=== PATIENT | male | born 1950 | race Caucasian/White ===

== ENCOUNTER 2017-10-23 07:40 | Outpatient (CLI) | payer MEDICARE, MEDICAID | END 2017-10-23 07:41 | disposition home or self-care (01) | LOC: BICULT 07:40 | PROVIDERS: ATTEND Internal Medicine Nephrology | DX: Z01.818 Encounter for other preprocedural examination (principal); I12.0 Hypertensive chronic kidney disease with stage 5 chronic kidney disease or end stage renal disease; N18.6 End stage renal disease | CPT/HCPCS: 93970; G0365 ==

== ENCOUNTER 2017-12-05 06:09 | Day surgery (SDC) | payer MEDICARE, MEDICAID ==
--- NOTE | 2017-12-03 15:38 | HP ---
HISTORY OF PRESENT ILLNESS: Trenton Delgado is a 67-year-old male with chronic kidney disease follow ed by Dr. Wesley and I was asked to see him regarding placement of a fistula. He has not yet starte d dialysis. The patient lives alone in [place]. ALLERGIES: None. TOBACCO: Cigars 2-3 a day. ALCOHOL: None for more than 12 years. MEDICATIONS: Carvedilol 12.5 mg a day, atorvastatin 40 mg at bedtime, Tradjenta 5 mg orally daily, P roventil inhalers as needed, lisinopril 10 mg a day, metformin 1000 mg twice a day. PAST SURGICAL HISTORY: ORIF, cervical spine ankle and hip. PAST MEDICAL HISTORY: Chronic kidney disease, not yet started dialysis; hypertension. SOCIAL HISTORY: Past employment oil field work, he is retired. The patient ambulates with a walker due to some hip problems and balance. He is right handed. Ultrasound vein mapping performed at [facility] on 10/23/2017 reveal cephalic vein right 3.1, 2.1 , 2.3, 2.8, 1.3 cm; proximal forearm basilic vein 4.4, 5.3, 4.7, 3.4 mm; elbow left cephalic vein 1.2 , 1.2, 1.2, 1.8, 1.9 mm proximal forearm; left basilic vein 5.2, 3.2, 2.5 cm, 2.7 mm; 2.0 mm forearm. PHYSICAL EXAMINATION: VITAL SIGNS: Weight 221 pounds, height 73 inches, 179/73, pulse 65, temperature 97.9 degrees. GENERAL: The patient is unkempt. LUNGS: Clear to auscultation. CARDIAC: Regular rate and rhythm without murmur, rub, or gallop. ABDOMEN: Soft, nontender. EXTREMITIES: Palpable radial pulses. No ankle edema. Multiple scratches both arms from his [place] amador puppy. LABORATORY DATA: Laboratories not available. ASSESSMENT AND PLAN: Chronic kidney disease, approaching need for dialysis, referred by Dr. Wesley for fistula. We will plan under regional anesthesia and TIVA right arm primary fistula. Risks and b enefits discussed, he consents.
[2017-12-04 09:18] VITALS: BMI 27.1
[2017-12-05] MEDS ORDERED: Heparin 5,000 UNITS/ML VIAL ONE (06:31)
[2017-12-05] MEDS ORDERED: Lidocaine 2% PF Inj 2 ML VIAL ONE (06:31)
[2017-12-05] MEDS ORDERED: Bupivacaine HCl 0.5%/Epinephrine 1:200,000/PF 30 ml Vial ONE ×2 (06:31→15:03)
[2017-12-05] MEDS ORDERED: Protamine Sulfate 50 MG/5 ML VIAL ONE (06:48)
[2017-12-05] MEDS ORDERED: Fentanyl 100 MCG/2 ML VIAL ONE ×2 (06:56)
[2017-12-05] MEDS ORDERED: Midazolam HCl 2 mg/2 ml Vial ONE ×2 (06:56→06:57)
[2017-12-05] MEDS ORDERED: PROPOFOL 0 ML ONE (06:57)
[2017-12-05] MEDS ORDERED: CEFAZOLIN/Water 2 GM/20 ML SYRINGE ONE (06:57)
[2017-12-05 07:01] LABS: Anion Gap 13 mmol/L (10-20); BUN (Urea Nitrogen) 41 mg/dL (8.4-25.7); Calc. Creatinine Clearance 20 mL/min (70-130); Calcium 8.5 mg/dL (7.8-10.44); Carbon Dioxide 23 mmol/L (23-31); Chloride 108 mmol/L (98-107); Estimated GFR-MDRD 11; Glucose 85 mg/dL (80-115); Potassium 4.8 mmol/L (3.5-5.1); Sodium 139 mmol/L (136-145)
[2017-12-05 07:16] LABS: #Basophils 0.1 thou/uL (0.0-0.2); #Eosinphils 0.2 thou/uL (0.0-0.7); #Lymphocytes 1.7 thou/uL (1.20-3.40); #Monocytes 0.4 thou/uL (0.11-0.59); %Basophils 0.9 % (0.0-1.0); %Eosinophils 3.7 % (0.0-10.0); %Lymphocytes 25.8 % (21.0-51.0); %Monocytes 6.7 % (0.0-10.0); %Neutrophils 62.9 % (42.0-75.0); Hemoglobin 9.6 g/dL (14.0-18.0); Mean Corpuscular HGB CONC 33.2 g/dL (32.0-36.0); Mean Corpuscular Hemoglobin 30.3 pg (27.0-31.0); Mean Corpuscular Volume 91.3 fL (78.0-98.0); Mean Platelet Volume 9.1 fL (7.4-10.4); Platelet Count 119 thou/uL (130-400); RBC Distribution Width 12.4 % (11.5-14.5); Red Blood Cell (RBC) Count 3.15 mill/uL (4.70-6.10); White Blood Cell (WBC) Count 6.4 thou/uL (4.8-10.8)
[2017-12-05] MEDS ORDERED: Fentanyl 250 MCG/5 ML VIAL ONE (08:53)
[2017-12-05] MEDS ORDERED: Morphine 4 MG/ML VIAL ONE (08:54)
--- NOTE | 2017-12-05 09:41 | OP ---
DATE OF PROCEDURE: 12/05/2017 PREOPERATIVE DIAGNOSIS: Chronic kidney disease, not yet having started dialysis. POSTOPERATIVE DIAGNOSES: 1. Chronic kidney disease, not yet having started dialysis. 2. Right wrist Annalise fistula, cephalic vein calibrated to a 4 mm, easily passed without obstruction , excellent caliber radial artery. SURGEON: Barrett Ghosh M.D. ANESTHESIA: TIVA. Regional right arm. PROCEDURE: The patient was taken to the operating room where under regional anesthesia and intraveno us sedation, right upper extremity was prepared with ChloraPrep, draped in routine fashion. Incision made longitudinal between the radial artery and cephalic vein, dissecting both free from surrounding soft tissue, dividing branches of the cephalic vein between 4-0 silk ties and clips, mobilizing the cephalic vein, clamping the cephalic vein on the hand side, dividing it and ligating it with 3-0 silk suture. It was spatulated and interrogated with coronary dilators, passing coronary dilators from a 2 mm to a 4 mm coronary dilator throughout its length without obstruction. There was a large branch point. Utilizing the anastomosis spatulated on to that branch point and radial artery clamped proxi estela and distally after adequate heparin, intravenous circulation time 6000 units administered. Leonel gitudinal radial arteriotomy made sharply and elongated with Lind scissors for a 3 cm anastomosis en d cephalic vein to side radial artery with continuous suture of 6-0 Prolene, completing the anastomos is, releasing the clamps, noting good Doppler signal throughout the cephalic vein outflow. Good hemo stasis noted. subcutaneous tissues 3-0 Monocryl, approximating the skin with subdermal 4-0 Monocryl and DermaGlue applied. The patient was given 25 mg of protamine intravenously.
[2017-12-05] MEDS ORDERED: PROPOFOL 200 MG/20 ML VIAL ONE (15:44)
[2017-12-05] MEDS ORDERED: Heparin 10,000 UNITS/ 10 ML VIAL ONE (15:44)
[2017-12-05] MEDS ORDERED: Lidocaine 1% PF 5 ML VIAL ONE (15:44)
--- NOTE | 2017-12-05 16:42 | EKG ---
Test Reason : PREOP Blood Pressure : / mmHG Vent. Rate : 069 BPM Atrial Rate : 069 BPM P-R Int : 206 ms QRS Dur : 102 ms QT Int : 420 ms P-R-T Axes : 055 -10 033 degrees QTc Int : 450 ms Normal sinus rhythm Cannot rule out Anterior infarct , age undetermined Abnormal ECG When compared with ECG of 28-FEB-2011 18:10, No significant change was found Confirmed by ALEJANDRO LYN, . SBaljinder ([id number]) on 12/05/2017 4:42:35 PM Referred By: RICH Confirmed By:DR. Tali ALLEN MD
== END 2017-12-05 10:10 | disposition home or self-care (01) ==
LOC: SDC 06:09
PROVIDERS: ATTEND Specialist
PROC: 031B0ZF Bypass Right Radial Artery to Lower Arm Vein, Open Approach (ICD-10-PCS; principal; 2017-12-05)
DX: I12.0 Hypertensive chronic kidney disease with stage 5 chronic kidney disease or end stage renal disease (principal); N18.6 End stage renal disease; Z79.899 Other long term (current) drug therapy
CPT/HCPCS: 36415; 80048; 85025; 93005; 93010; J0670; J1644; J2001; J2250; J2270; J2704; J2720; J3010

== ENCOUNTER 2018-01-07 12:48 | Day surgery (SDC) | payer MEDICARE, MEDICAID ==
[2018-01-07 13:20] VITALS: BP 182/79; TEMP 97.5
[2018-01-07 13:49] LABS: #Eosinphils 0.2 thou/uL (0.0-0.7); #Lymphocytes 1.4 thou/uL (1.20-3.40); #Monocytes 0.3 thou/uL (0.11-0.59); #Neutrophils 3.1 thou/uL (1.40-6.50); %Basophils 0.2 % (0.0-1.0); %Eosinophils 3.8 % (0.0-10.0); %Lymphocytes 27.3 % (21.0-51.0); %Monocytes 6.4 % (0.0-10.0); %Neutrophils 62.3 % (42.0-75.0); Hemoglobin 8.4 g/dL (14.0-18.0); Mean Corpuscular HGB CONC 32.9 g/dL (32.0-36.0); Mean Corpuscular Hemoglobin 29.8 pg (27.0-31.0); Mean Corpuscular Volume 90.6 fL (78.0-98.0); Mean Platelet Volume 8.3 fL (7.4-10.4); Platelet Count 110 thou/uL (130-400); RBC Distribution Width 12.5 % (11.5-14.5)
[2018-01-07] MEDS ORDERED: Epoetin 40,000 UNITS/ML VIAL SC SCH (14:00)
== END 2018-01-07 14:11 | disposition home or self-care (01) ==
LOC: ONC/OP 12:48
PROVIDERS: ATTEND Internal Medicine Hematology & Oncology
DX: N18.9 Chronic kidney disease, unspecified (principal); D63.1 Anemia in chronic kidney disease; Z79.899 Other long term (current) drug therapy
CPT/HCPCS: 85025; 96372; J0885

== ENCOUNTER 2022-03-17 12:50 | Inpatient (IN) | payer MEDICARE, MEDICAID ==
[2022-03-17 13:33] LABS: #Eosinphils 0.1 thou/uL (0.0-0.7); #Monocytes 0.2 thou/uL (0.11-0.59); #Neutrophils 5.5 thou/uL (1.40-6.50); %Basophils 0.4 % (0.0-1.0); %Lymphocytes 14.3 % (21.0-51.0); %Monocytes 3.5 % (0.0-10.0); Mean Corpuscular HGB CONC 33.8 g/dL (32.0-36.0); Mean Corpuscular Hemoglobin 33.1 pg (27.0-31.0); Mean Corpuscular Volume 98.1 fl (78.0-98.0); Mean Platelet Volume 8.3 fL (7.4-10.4); Platelet Count 153 10x3/uL (130-400); RBC Distribution Width 11.6 % (11.5-14.5); Red Blood Cell (RBC) Count 3.33 mill/uL (4.70-6.10); White Blood Cell (WBC) Count 6.8 10x3/uL (4.8-10.8)
[2022-03-17 14:05] LABS: Acetaminophen Less than 10.0 mcg/mL (10.0-30.0); Alcohol Less than 10 mg/dL (Less than 10); Salicylate Less than 8.0 mg/dL (15.0-30.0)
[2022-03-17 14:06] LABS: ALT (SGPT) 10 U/L (8-55); AST (SGOT) 10 U/L (5-34); Albumin 3.9 g/dL (3.4-4.8); Alkaline Phosphatase 85 U/L (40-110); Anion Gap 17 mmol/L (10-20); BUN (Urea Nitrogen) 42 mg/dL (8.4-25.7); Bilirubin, Total 0.8 mg/dL (0.2-1.2); CK (CPK) 71 U/L (30-200); Calc. Creatinine Clearance 0 mL/min (70-130); Calcium 8.9 mg/dL (7.8-10.44); Carbon Dioxide 24 mmol/L (23-31); Chloride 102 mmol/L (98-107); Estimated GFR 9; Globulin 3.4 g/dL (2.4-3.5); Glucose 149 mg/dL (80-115); Potassium 4.6 mmol/L (3.5-5.1); Protein, Total 7.3 g/dL (5.8-8.1); Sodium 138 mmol/L (136-145)
[2022-03-17 14:49] LABS: Amphetamine Not Detected (NotDetected); Barbiturates Screen Not Detected (NotDetected); Benzodiazepine Screen Not Detected (NotDetected); Cocaine Metabolite Screen Not Detected (NotDetected); Methadone Not Detected (NotDetected); Methamphetamine Not Detected (NotDetected); Opiate Screen Not Detected (NotDetected); Oxycodone Screen Not Detected (NotDetected); Phencyclidine (PCP) Not Detected (NotDetected); THC/Cannabinoid Screen Not Detected (NotDetected); Tricyclic Screen Not Detected (NotDetected)
[2022-03-17 15:08] LABS: Bacteria/HPF 3+ HPF (None Seen); Bilirubin Negative (Negative); Blood, Urine 2+ (Negative); Clarity Turbid (Clear); Glucose, Urine (Dipstick) 30 mg/dL (Negative); Ketone, Urine Negative (Negative); Leukocyte 500 Leu/uL (Negative); Nitrite Negative (Negative); Protein, Urine (Dipstick) 300 mg/dL (Neg-Trace); Specific Gravity, Urine 1.012 (1.002-1.036); Squamous Epithelial 0-3 HPF (0-3); Urobilinogen Normal mg/dL (Less than 2); WBC/HPF 21-50 HPF (0-3)
[2022-03-17 15:13] LABS: Sperm/HPF Rare HPF (None Seen)
[2022-03-17] MEDS ORDERED: Ciprofloxacin 500 MG TAB ONE (16:57)
[2022-03-18 08:38] LABS: Anion Gap 13 mmol/L (10-20); BUN (Urea Nitrogen) 50 mg/dL (8.4-25.7); Calc. Creatinine Clearance 0 mL/min (70-130); Calcium 8.8 mg/dL (7.8-10.44); Carbon Dioxide 23 mmol/L (23-31); Chloride 107 mmol/L (98-107); Estimated GFR 8; Glucose 132 mg/dL (80-115); Potassium 5.4 mmol/L (3.5-5.1); Sodium 138 mmol/L (136-145)
[2022-03-18] MEDS ORDERED: Sulfameth/Trimethoprim DS 800-160mg TAB ONE ×2 (08:44→21:41)
[2022-03-18 17:25] LABS: Anion Gap 11 mmol/L (10-20); BUN (Urea Nitrogen) 29 mg/dL (8.4-25.7); Calc. Creatinine Clearance 0 mL/min (70-130); Carbon Dioxide 27 mmol/L (23-31); Chloride 104 mmol/L (98-107); Estimated GFR 14; Glucose 154 mg/dL (80-115); Potassium 4.2 mmol/L (3.5-5.1); Sodium 138 mmol/L (136-145)
[2022-03-19 08:09] LABS: Anion Gap 15 mmol/L (10-20); BUN (Urea Nitrogen) 34 mg/dL (8.4-25.7); Calc. Creatinine Clearance 0 mL/min (70-130); Carbon Dioxide 19 mmol/L (23-31); Chloride 108 mmol/L (98-107); Estimated GFR 10; Glucose 87 mg/dL (80-115); Potassium 5.3 mmol/L (3.5-5.1); Sodium 137 mmol/L (136-145)
[2022-03-19] MEDS ORDERED: Sulfameth/Trimethoprim DS 800-160mg TAB ONE (09:18)
[2022-03-20 00:14] LABS: Anion Gap 13 mmol/L (10-20); BUN (Urea Nitrogen) 48 mg/dL (8.4-25.7); Calc. Creatinine Clearance 0 mL/min (70-130); Calcium 8.7 mg/dL (7.8-10.44); Carbon Dioxide 26 mmol/L (23-31); Chloride 104 mmol/L (98-107); Estimated GFR 9; Glucose 127 mg/dL (80-115); Sodium 138 mmol/L (136-145)
[2022-03-20] MEDS ORDERED: Acetaminophen 325 MG TAB ONE (03:39)
[2022-03-20] MEDS ORDERED: Ibuprofen 200 MG TAB ONE ×2 (03:39→03:43)
[2022-03-20] MEDS ORDERED: Sevelamer Carbonate 800 MG TAB PO PRN (11:21)
[2022-03-20] MEDS ORDERED: metFORMIN 500 MG TAB PO SCH (11:30)
[2022-03-20] MEDS ORDERED: Tamsulosin HCl 0.4 MG CAP PO SCH (11:30)
[2022-03-20] MEDS ORDERED: Carvedilol 6.25 MG TAB PO SCH (11:30)
[2022-03-20] MEDS ORDERED: Pregabalin 25 MG CAP PO SCH (11:30)
[2022-03-20] MEDS ORDERED: NIFEdipine XL 60 MG TAB PO SCH (11:30)
[2022-03-20] MEDS ORDERED: HumaLOG 300 UNITS/3 ML VIAL SC PRN ×2 (14:14→14:44)
[2022-03-20] MEDS ORDERED: Dextrose 50% Abboject 50 ML SYRINGE SLOW IVP PRN (14:14)
[2022-03-20] MEDS ORDERED: Dextrose 5% in Water 1,000 ML IV PRN (14:14)
[2022-03-20] MEDS ORDERED: Sulfameth/Trimethoprim DS 800-160mg TAB ONE (14:42)
[2022-03-20 15:01] LABS: Hemoglobin A1c 5.2 % (4.0-6.0)
[2022-03-20 17:40] VITALS: BMI 23.1
[2022-03-20] MEDS: Sevelamer Carbonate 800 MG TAB PO SCH (17:54)
[2022-03-20] MEDS: Nicotine 21 MG PATCH TD SCH (17:54)
[2022-03-20] MEDS: Heparin 5,000 UNITS/ML VIAL SC SCH ×2 (17:54→20:27)
[2022-03-20] MEDS: Pregabalin 25 MG CAP PO SCH (20:27)
[2022-03-20] MEDS: Atorvastatin Calcium 40 MG TAB PO SCH (20:27)
[2022-03-20] MEDS ORDERED: Sulfameth/Trimethoprim DS 800-160mg TAB PO SCH (21:00)
[2022-03-21 05:54] LABS: #Eosinphils 0.2 thou/uL (0.0-0.7); #Lymphocytes 1.6 thou/uL (1.20-3.40); #Monocytes 0.4 thou/uL (0.11-0.59); #Neutrophils 4.2 thou/uL (1.40-6.50); %Basophils 0.3 % (0.0-1.0); %Eosinophils 3.7 % (0.0-10.0); %Lymphocytes 24.9 % (21.0-51.0); %Monocytes 5.4 % (0.0-10.0); %Neutrophils 65.7 % (42.0-75.0); Hemoglobin 9.4 g/dL (14.0-18.0); Mean Corpuscular HGB CONC 31.7 g/dL (32.0-36.0); Mean Corpuscular Hemoglobin 31.5 pg (27.0-31.0); Mean Corpuscular Volume 99.5 fl (78.0-98.0); Mean Platelet Volume 8.9 fL (7.4-10.4); Platelet Count 144 10x3/uL (130-400); RBC Distribution Width 11.8 % (11.5-14.5); Red Blood Cell (RBC) Count 2.99 mill/uL (4.70-6.10); White Blood Cell (WBC) Count 6.4 10x3/uL (4.8-10.8)
[2022-03-21 06:13] LABS: Anion Gap 17 mmol/L (10-20); BUN (Urea Nitrogen) 59 mg/dL (8.4-25.7); Calc. Creatinine Clearance 11 mL/min (70-130); Calcium 8.7 mg/dL (7.8-10.44); Carbon Dioxide 20 mmol/L (23-31); Chloride 105 mmol/L (98-107); Estimated GFR 8; Glucose 91 mg/dL (80-115); Potassium 5.5 mmol/L (3.5-5.1); Sodium 136 mmol/L (136-145)
[2022-03-21] MEDS ORDERED: metFORMIN 500 MG TAB PO SCH (08:00)
[2022-03-21] MEDS: Sevelamer Carbonate 800 MG TAB PO SCH ×3 (08:42→17:02)
[2022-03-21] MEDS: Heparin 5,000 UNITS/ML VIAL SC SCH (08:43)
[2022-03-21] MEDS: Pregabalin 25 MG CAP PO SCH (08:43)
[2022-03-21] MEDS: Tamsulosin HCl 0.4 MG CAP PO SCH (08:45)
[2022-03-21] MEDS ORDERED: Carvedilol 6.25 MG TAB PO SCH (09:00)
[2022-03-21] MEDS ORDERED: NIFEdipine XL 60 MG TAB PO SCH (09:00)
[2022-03-21] MEDS ORDERED: Electrolyte Replacement Protocol 1 EACH IVPB ONE (11:10)
[2022-03-21] MEDS ORDERED: DOPamine 400 MG/D5W 250 ML 250 ML IVPB SCH (11:15)
[2022-03-21 11:34] LABS: Hemoglobin 8.4 g/dL (14.0-18.0); Mean Corpuscular HGB CONC 32.8 g/dL (32.0-36.0); Mean Corpuscular Hemoglobin 32.3 pg (27.0-31.0); Mean Corpuscular Volume 98.4 fl (78.0-98.0); Red Blood Cell (RBC) Count 2.61 mill/uL (4.70-6.10); White Blood Cell (WBC) Count 5.3 10x3/uL (4.8-10.8)
[2022-03-21] MEDS ORDERED: Atropine Sulfate 1 mg/10 ml Syringe ONE (11:36)
[2022-03-21] MEDS ORDERED: Calcium Chloride 1 GM/10 ML Abboject SYRINGE ONE (11:36)
[2022-03-21] MEDS ORDERED: DOPamine/D5W 400 mg/250 ml PREMIX ONE (11:36)
[2022-03-21 11:44] LABS: ALT (SGPT) 34 U/L (8-55); AST (SGOT) 27 U/L (5-34); Alkaline Phosphatase 57 U/L (40-110); Anion Gap 13 mmol/L (10-20); BUN (Urea Nitrogen) 49 mg/dL (8.4-25.7); Bilirubin, Total 0.5 mg/dL (0.2-1.2); Calc. Creatinine Clearance 14 mL/min (70-130); Calcium 8.9 mg/dL (7.8-10.44); Carbon Dioxide 23 mmol/L (23-31); Chloride 104 mmol/L (98-107); Estimated GFR 10; Globulin 2.4 g/dL (2.4-3.5); Glucose 112 mg/dL (80-115); Magnesium 2.5 mg/dL (1.6-2.6); Phosphorus 5.9 mg/dL (2.3-4.7); Potassium 4.9 mmol/L (3.5-5.1); Protein, Total 5.4 g/dL (5.8-8.1); Sodium 135 mmol/L (136-145)
[2022-03-21 11:46] LABS: #Eosinphils 0.2 thou/uL (0.0-0.7); #Lymphocytes 1.3 thou/uL (1.20-3.40); #Monocytes 0.2 thou/uL (0.11-0.59); #Neutrophils 3.6 thou/uL (1.40-6.50); %Basophils 0.2 % (0.0-1.0); %Eosinophils 3.5 % (0.0-10.0); %Lymphocytes 24.2 % (21.0-51.0); %Monocytes 3.8 % (0.0-10.0); %Neutrophils 68.3 % (42.0-75.0); Mean Platelet Volume 8.4 fL (7.4-10.4); Platelet Count 119 10x3/uL (130-400); Platelet Morphology Comment Appears Decreased; RBC Distribution Width 11.8 % (11.5-14.5)
[2022-03-21 11:48] LABS: Troponin I 0.018 ng/mL (< 0.028)
[2022-03-21 11:51] LABS: HBSAg Index 0.47 S/CO (0-0.99); Hep B Core Total Ab Non-Reactive (NonReactive); Hep B Core Total Index 0.25 S/CO (0-0.79); Hep B Surf Ag Non-Reactive S/CO (NonReactive); Hep C IgG Ab Non-Reactive (NonReactive)
[2022-03-21 12:00] LABS: HBSAB Concentration 208.39 mIU/mL; Hep B Surf AB Reactive (NonReactive)
[2022-03-21] MEDS ORDERED: Ondansetron PF 4 MG/2 ML Vial IVP SCH ×2 (12:15→18:00)
[2022-03-21] MEDS ORDERED: Vancomycin 1 GM in Premix Bag 1 BAG IVPB SCH (12:45)
[2022-03-21 16:29] LABS: Anion Gap 11 mmol/L (10-20); BUN (Urea Nitrogen) 17 mg/dL (8.4-25.7); Calc. Creatinine Clearance 32 mL/min (70-130); Calcium 8.6 mg/dL (7.8-10.44); Carbon Dioxide 29 mmol/L (23-31); Chloride 102 mmol/L (98-107); Estimated GFR 26; Glucose 108 mg/dL (80-115); Potassium 3.9 mmol/L (3.5-5.1); Sodium 138 mmol/L (136-145)
[2022-03-21] MEDS: Nicotine 21 MG PATCH TD SCH (17:02)
[2022-03-21] MEDS: Acetaminophen 325 MG TAB PO PRN (17:02)
[2022-03-21] MEDS ORDERED: Ondansetron PF 4 MG/2 ML Vial IVP PRN (18:06)
[2022-03-21] MEDS: Atorvastatin Calcium 40 MG TAB PO SCH (20:04)
[2022-03-22] MEDS: Acetaminophen 325 MG TAB PO PRN ×3 (00:58→20:22)
[2022-03-22] MEDS ORDERED: Heparin 10,000 UNITS/ 10 ML VIAL ONE (07:38)
[2022-03-22 08:08] LABS: #Eosinphils 0.1 thou/uL (0.0-0.7); #Lymphocytes 0.5 thou/uL (1.20-3.40); #Monocytes 0.3 thou/uL (0.11-0.59); #Neutrophils 3.1 thou/uL (1.40-6.50); %Basophils 0.1 % (0.0-1.0); %Eosinophils 2.9 % (0.0-10.0); %Lymphocytes 12.6 % (21.0-51.0); %Monocytes 7.4 % (0.0-10.0); Hemoglobin 10.1 g/dL (14.0-18.0); Mean Corpuscular HGB CONC 33.3 g/dL (32.0-36.0); Mean Corpuscular Hemoglobin 32.6 pg (27.0-31.0); Mean Platelet Volume 8.6 fL (7.4-10.4); Platelet Count 109 10x3/uL (130-400); RBC Distribution Width 11.7 % (11.5-14.5); Red Blood Cell (RBC) Count 3.11 mill/uL (4.70-6.10)
[2022-03-22] MEDS ORDERED: NIFEdipine XL 30 MG TAB PO SCH ×3 (08:17→11:00)
[2022-03-22 08:18] LABS: ALT (SGPT) 26 U/L (8-55); AST (SGOT) 26 U/L (5-34); Albumin 3.3 g/dL (3.4-4.8); Alkaline Phosphatase 65 U/L (40-110); Anion Gap 13 mmol/L (10-20); BUN (Urea Nitrogen) 30 mg/dL (8.4-25.7); Bilirubin, Total 0.7 mg/dL (0.2-1.2); Calc. Creatinine Clearance 19 mL/min (70-130); Calcium 8.4 mg/dL (7.8-10.44); Carbon Dioxide 25 mmol/L (23-31); Chloride 103 mmol/L (98-107); Estimated GFR 13; Globulin 3.8 g/dL (2.4-3.5); Glucose 97 mg/dL (80-115); Potassium 5.9 mmol/L (3.5-5.1); Protein, Total 7.1 g/dL (5.8-8.1); Sodium 135 mmol/L (136-145)
[2022-03-22] MEDS: Sevelamer Carbonate 800 MG TAB PO SCH ×3 (08:26→16:12)
[2022-03-22] MEDS: Famotidine/PF 20 mg/2ml Vial SLOW IVP SCH (08:26)
[2022-03-22] MEDS: Aspirin 81 mg Enteric Coated Tablet PO SCH (08:26)
[2022-03-22] MEDS: Tamsulosin HCl 0.4 MG CAP PO SCH (08:26)
[2022-03-22] MEDS: Nicotine 21 MG PATCH TD SCH (16:11)
[2022-03-22] MEDS ORDERED: Tamsulosin HCl 0.4 MG CAP PO SCH ×2 (18:00→21:00)
[2022-03-22] MEDS: Atorvastatin Calcium 40 MG TAB PO SCH (20:23)
[2022-03-22] MEDS ORDERED: Simvastatin 40 MG TAB PO SCH (21:00)
[2022-03-23 03:49] LABS: #Lymphocytes 0.9 thou/uL (1.20-3.40); #Monocytes 0.4 thou/uL (0.11-0.59); #Neutrophils 2.5 thou/uL (1.40-6.50); %Basophils 0.5 % (0.0-1.0); %Eosinophils 0.7 % (0.0-10.0); %Lymphocytes 22.7 % (21.0-51.0); %Monocytes 10.5 % (0.0-10.0); %Neutrophils 65.6 % (42.0-75.0); Mean Corpuscular HGB CONC 33.2 g/dL (32.0-36.0); Mean Corpuscular Hemoglobin 32.2 pg (27.0-31.0); Mean Corpuscular Volume 96.7 fl (78.0-98.0); Mean Platelet Volume 8.5 fL (7.4-10.4); Platelet Count 91 10x3/uL (130-400); RBC Distribution Width 11.7 % (11.5-14.5); Red Blood Cell (RBC) Count 3.09 mill/uL (4.70-6.10); White Blood Cell (WBC) Count 3.8 10x3/uL (4.8-10.8)
[2022-03-23 04:05] LABS: ALT (SGPT) 24 U/L (8-55); AST (SGOT) 16 U/L (5-34); Albumin 3.4 g/dL (3.4-4.8); Alkaline Phosphatase 59 U/L (40-110); Anion Gap 12 mmol/L (10-20); BUN (Urea Nitrogen) 28 mg/dL (8.4-25.7); Bilirubin, Total 0.7 mg/dL (0.2-1.2); Calc. Creatinine Clearance 18 mL/min (70-130); Calcium 8.6 mg/dL (7.8-10.44); Carbon Dioxide 26 mmol/L (23-31); Chloride 103 mmol/L (98-107); Estimated GFR 12; Globulin 3.4 g/dL (2.4-3.5); Glucose 82 mg/dL (80-115); Potassium 4.7 mmol/L (3.5-5.1); Protein, Total 6.8 g/dL (5.8-8.1); Sodium 136 mmol/L (136-145)
[2022-03-23] MEDS: Acetaminophen 325 MG TAB PO PRN (04:44)
[2022-03-23] MEDS: Sevelamer Carbonate 800 MG TAB PO SCH (08:39)
[2022-03-23] MEDS: Famotidine/PF 20 mg/2ml Vial SLOW IVP SCH (08:40)
[2022-03-23] MEDS: Aspirin 81 mg Enteric Coated Tablet PO SCH (08:40)
[2022-03-23 08:42] VITALS: BP 151/100
[2022-03-23] MEDS ORDERED: Tamsulosin HCl 0.4 MG CAP PO SCH (09:00)
[2022-03-23] MEDS ORDERED: NIFEdipine XL 60 MG TAB PO SCH (09:00)
[2022-03-23 10:27] VITALS: TEMP 98.3
[2022-03-24] MEDS ORDERED: Pantoprazole 40 MG VIAL IVP SCH (09:00)
== END 2022-03-23 11:00 | DRG 640 ==
LOC: ERS 12:50 → ERHOLD 03-20 11:00 → T4-B 03-20 17:54 → CCU 03-21 11:30
PROVIDERS: ADMIT Emergency Medicine; ATTEND Emergency Medicine
PROC: 5A1D70Z Performance of Urinary Filtration, Intermittent, Less than 6 Hours Per Day (ICD-10-PCS; principal; 2022-03-20)
DX: E87.5 Hyperkalemia (principal); N18.6 End stage renal disease; I69.954 Hemiplegia and hemiparesis following unspecified cerebrovascular disease affecting left non-dominant side; I12.0 Hypertensive chronic kidney disease with stage 5 chronic kidney disease or end stage renal disease; R45.851 Suicidal ideations; Z20.822 Contact with and (suspected) exposure to COVID-19; E11.22 Type 2 diabetes mellitus with diabetic chronic kidney disease; N40.1 Benign prostatic hyperplasia with lower urinary tract symptoms; R33.8 Other retention of urine; I25.10 Atherosclerotic heart disease of native coronary artery without angina pectoris; E78.5 Hyperlipidemia, unspecified; D63.1 Anemia in chronic kidney disease; I95.89 Other hypotension; Z99.2 Dependence on renal dialysis; Z79.84 Long term (current) use of oral hypoglycemic drugs; Z79.899 Other long term (current) drug therapy; Z59.00 Homelessness unspecified; I25.2 Old myocardial infarction; Z91.199 Patient's noncompliance with other medical treatment and regimen due to unspecified reason
CPT/HCPCS: 36415; 36416; 36430; 80048; 80053; 80306; 80307; 81003; 81015; 82550; 83036; 83735; 83880; 84100; 84484; 85025; 86704; 86850; 86900; 86901; 87086; 90935; 93005; 93010; 93306; 97139; 99285; G0257; J0461; J1265; J1644; J2405; J3370-JW; P9016; S0028

== ENCOUNTER 2022-04-20 02:01 | Inpatient (IN) | payer MEDICARE, MEDICAID ==
[2022-04-20] MEDS ORDERED: Cefepime 2 GM VIAL ONE (02:28)
[2022-04-20] MEDS ORDERED: Vancomycin 1 GM/200 ML (FROZEN) BAG ONE (02:28)
[2022-04-20 02:47] LABS: Bilirubin Negative (Negative); Blood, Urine Negative (Negative); Clarity Clear (Clear); Glucose, Urine (Dipstick) Normal (Negative); Ketone, Urine Negative (Negative); Leukocyte Negative Leu/uL (Negative); Nitrite Negative (Negative); Protein, Urine (Dipstick) Negative (Neg-Trace); Specific Gravity, Urine 1.029 (1.002-1.036); Urobilinogen Normal mg/dL (Less than 2); pH, Urine 7.5 (5.0-9.0)
[2022-04-20 02:52] LABS: ALT (SGPT) 18 U/L (8-55); AST (SGOT) 13 U/L (5-34); Acetaminophen Less than 10.0 mcg/mL (10.0-30.0); Albumin 3.3 g/dL (3.4-4.8); Alcohol Less than 10 mg/dL (Less than 10); Alkaline Phosphatase 77 U/L (40-110); Anion Gap 14 mmol/L (10-20); BUN (Urea Nitrogen) 25 mg/dL (8.4-25.7); Bilirubin, Total 0.8 mg/dL (0.2-1.2); Calc. Creatinine Clearance 0 mL/min (70-130); Calcium 8.4 mg/dL (7.8-10.44); Carbon Dioxide 26 mmol/L (23-31); Chloride 101 mmol/L (98-107); Estimated GFR 13; Globulin 3.4 g/dL (2.4-3.5); Glucose 113 mg/dL (80-115); Potassium 4.2 mmol/L (3.5-5.1); Protein, Total 6.7 g/dL (5.8-8.1); Salicylate Less than 8.0 mg/dL (15.0-30.0); Sodium 137 mmol/L (136-145)
[2022-04-20 02:56] LABS: Amphetamine Detected (NotDetected); Barbiturates Screen Not Detected (NotDetected); Benzodiazepine Screen Not Detected (NotDetected); Cocaine Metabolite Screen Not Detected (NotDetected); Methadone Not Detected (NotDetected); Methamphetamine Detected (NotDetected); Opiate Screen Detected (NotDetected); Oxycodone Screen Not Detected (NotDetected); Phencyclidine (PCP) Not Detected (NotDetected); THC/Cannabinoid Screen Not Detected (NotDetected); Tricyclic Screen Not Detected (NotDetected)
[2022-04-20 03:27] LABS: Actual Bicarbonate (HCO3v) 29 mEq/L (22-28); Base Excess 4.8 mEq/L (-2.0 to +3.0); Calcium, Ionized (venous) 0.98 mmol/L (1.16-1.32); Chloride (VBG) 101 mmol/L (98-106); Hemoglobin (Hb) 7.8 g/dL (12.6-17.4); Potassium (VBG) 4.22 mmol/L (3.70-5.30); pH (venous) 7.45 (7.32-7.43)
[2022-04-20] MEDS ORDERED: Acetaminophen 325 MG TAB PO PRN (04:13)
[2022-04-20] MEDS ORDERED: Ondansetron PF 4 MG/2 ML Vial IVP PRN (04:13)
[2022-04-20] MEDS ORDERED: Lactated Ringer's 1,000 ML IV SCH (04:30)
[2022-04-20] MEDS ORDERED: EPOETIN ALFA-EPBX (ESRD) 10,000 UNIT/ML VIAL IVP PRN (04:33)
[2022-04-20] MEDS ORDERED: HYDROcodone/Acetaminophen 5/325 mg Tablet PO PRN (04:33)
[2022-04-20] MEDS ORDERED: Vancomycin 1 GM in Premix Bag 1 BAG IVPB SCH (05:00)
[2022-04-20] MEDS ORDERED: Vancomycin Dialysis Sliding Scale (Wt > 99) FS SCH (05:00)
[2022-04-20 05:14] VITALS: BMI 22.8
[2022-04-20 05:14] LABS: Hemoglobin 7.1 g/dL (14.0-18.0); Mean Corpuscular HGB CONC 32.9 g/dL (32.0-36.0); Mean Corpuscular Volume 94.3 fl (78.0-98.0); Mean Platelet Volume 8.6 fL (7.4-10.4); Platelet Count 115 10x3/uL (130-400); RBC Distribution Width 13.2 % (11.5-14.5); White Blood Cell (WBC) Count 8.6 10x3/uL (4.8-10.8)
[2022-04-20 05:35] LABS: Band 25 % (5-11); Eosinophils 1 % (0-10); Hypochromia SLIGHT = 6-15 cells (100X) (0-5/hpf); MDiff Complete? YES; Monocytes 10 % (0-10); Neutrophil 64 % (42-75); Platelet Morphology Comment Appears Decreased
[2022-04-20 07:51] LABS: SARS-CoV-2 NAA Rapid Test DETECTED (NotDetected)
[2022-04-20] MEDS ORDERED: Loratadine 10 MG TAB PO SCH (09:00)
[2022-04-20] MEDS ORDERED: FLU VACC QS2022-23(65YR UP)/PF 240 MCG/0.7 ML SYRINGE IM ONE (09:00)
[2022-04-20] MEDS: Nicotine 14 MG PATCH TD SCH (09:21)
[2022-04-20] MEDS: Sevelamer Carbonate 800 MG TAB PO SCH ×3 (09:22→15:36)
[2022-04-20] MEDS: NIFEdipine XL 60 MG TAB PO SCH (09:22)
[2022-04-20] MEDS: Aspirin 81 mg Enteric Coated Tablet PO SCH (09:22)
[2022-04-20] MEDS: Calcium Carbonate 600 MG + Vit D TAB PO SCH ×2 (09:23→15:36)
[2022-04-20] MEDS: Heparin 5,000 UNITS/ML VIAL SC SCH ×3 (09:28→20:13)
[2022-04-20] MEDS ORDERED: cefTRIAXone\\ROCEPHIN 1 GM in Sodium Chloride 0.9% 100 ML IVPB SCH (10:00)
[2022-04-20] MEDS ORDERED: Epoetin (ESRD) 10,000 UNITS/ML VIAL SC SCH (10:15)
[2022-04-20] MEDS ORDERED: metroNIDAZOLE 500 MG in Premix Bag 1 BAG IVPB SCH (14:00)
[2022-04-20] MEDS ORDERED: Piperacillin/Tazobactam 3.375 GM in Sodium Chloride 0.9% 100 ML IVPB SCH (15:00)
[2022-04-20] MEDS: metroNIDAZOLE 500 MG in Premix Bag 1 BAG IVPB SCH (16:02)
[2022-04-20 17:54] LABS: Amphetamine Not Detected (NotDetected); Barbiturates Screen Not Detected (NotDetected); Benzodiazepine Screen Not Detected (NotDetected); Cocaine Metabolite Screen Not Detected (NotDetected); Methadone Not Detected (NotDetected); Methamphetamine Not Detected (NotDetected); Opiate Screen Not Detected (NotDetected); Oxycodone Screen Not Detected (NotDetected); Phencyclidine (PCP) Not Detected (NotDetected); THC/Cannabinoid Screen Not Detected (NotDetected); Tricyclic Screen Not Detected (NotDetected)
[2022-04-20] MEDS: Atorvastatin Calcium 40 MG TAB PO SCH (20:13)
[2022-04-20] MEDS: Tamsulosin HCl 0.4 MG CAP PO SCH (20:13)
[2022-04-20 22:23] LABS: Hemoglobin 7.1 g/dL (14.0-18.0)
[2022-04-20 23:40] LABS: Hemoglobin 7.5 g/dL (14.0-18.0)
[2022-04-21] MEDS ORDERED: Piperacillin/Tazobactam 3.375 GM in Sodium Chloride 0.9% 100 ML IVPB SCH (03:00)
[2022-04-21 05:02] LABS: #Eosinphils 0.2 thou/uL (0.0-0.7); #Lymphocytes 1.2 thou/uL (1.20-3.40); #Monocytes 0.4 thou/uL (0.11-0.59); #Neutrophils 5.8 thou/uL (1.40-6.50); %Basophils 0.1 % (0.0-1.0); %Lymphocytes 16.2 % (21.0-51.0); %Monocytes 4.6 % (0.0-10.0); %Neutrophils 77.1 % (42.0-75.0); Mean Corpuscular HGB CONC 32.4 g/dL (32.0-36.0); Mean Corpuscular Hemoglobin 31.1 pg (27.0-31.0); Mean Corpuscular Volume 95.9 fl (78.0-98.0); Mean Platelet Volume 9.2 fL (7.4-10.4); Platelet Count 110 10x3/uL (130-400); Red Blood Cell (RBC) Count 2.26 mill/uL (4.70-6.10); White Blood Cell (WBC) Count 7.5 10x3/uL (4.8-10.8)
[2022-04-21 05:20] LABS: Anion Gap 16 mmol/L (10-20); BUN (Urea Nitrogen) 39 mg/dL (8.4-25.7); Calc. Creatinine Clearance 13 mL/min (70-130); Calcium 8.5 mg/dL (7.8-10.44); Carbon Dioxide 24 mmol/L (23-31); Chloride 100 mmol/L (98-107); Estimated GFR 9; Glucose 75 mg/dL (80-115); Potassium 4.6 mmol/L (3.5-5.1); Sodium 135 mmol/L (136-145)
[2022-04-21] MEDS ORDERED: Cefepime 0.5 GM in Sodium Chloride 0.9% 100 ML IVPB SCH (06:00)
[2022-04-21 07:15] LABS: Vancomycin, Random 14.8 ug/mL (See Comment)
[2022-04-21] MEDS ORDERED: Vancomycin Diaylsis Sliding Scale (Wt 71-99) FS SCH (07:45)
[2022-04-21] MEDS: Sevelamer Carbonate 800 MG TAB PO SCH ×3 (09:34→17:06)
[2022-04-21] MEDS: Heparin 5,000 UNITS/ML VIAL SC SCH ×3 (09:34→19:53)
[2022-04-21] MEDS: Nicotine 14 MG PATCH TD SCH (09:34)
[2022-04-21] MEDS: Calcium Carbonate 600 MG + Vit D TAB PO SCH ×2 (09:35→17:06)
[2022-04-21] MEDS: Aspirin 81 mg Enteric Coated Tablet PO SCH (13:15)
[2022-04-21] MEDS: NIFEdipine XL 60 MG TAB PO SCH (13:15)
[2022-04-21] MEDS: metroNIDAZOLE 500 MG in Premix Bag 1 BAG IVPB SCH ×2 (13:20)
[2022-04-21] MEDS ORDERED: Vancomycin 1 GM in Premix Bag 1 BAG IVPB SCH (17:00)
[2022-04-21 17:59] LABS: Hemoglobin 9.5 g/dL (14.0-18.0)
[2022-04-21] MEDS: Tamsulosin HCl 0.4 MG CAP PO SCH (19:53)
[2022-04-21] MEDS: Atorvastatin Calcium 40 MG TAB PO SCH (19:53)
[2022-04-22 07:16] LABS: #Eosinphils 0.2 thou/uL (0.0-0.7); #Lymphocytes 0.9 thou/uL (1.20-3.40); #Monocytes 0.3 thou/uL (0.11-0.59); #Neutrophils 4.2 thou/uL (1.40-6.50); %Basophils 0.1 % (0.0-1.0); %Eosinophils 3.9 % (0.0-10.0); %Lymphocytes 16.1 % (21.0-51.0); %Monocytes 5.1 % (0.0-10.0); %Neutrophils 74.7 % (42.0-75.0); Hemoglobin 9.1 g/dL (14.0-18.0); Mean Corpuscular HGB CONC 34.3 g/dL (32.0-36.0); Mean Corpuscular Hemoglobin 31.5 pg (27.0-31.0); Mean Corpuscular Volume 91.8 fl (78.0-98.0); Mean Platelet Volume 8.6 fL (7.4-10.4); Platelet Count 123 10x3/uL (130-400); RBC Distribution Width 13.2 % (11.5-14.5); White Blood Cell (WBC) Count 5.6 10x3/uL (4.8-10.8)
[2022-04-22 07:38] LABS: ALT (SGPT) 10 U/L (8-55); AST (SGOT) 12 U/L (5-34); Albumin 2.9 g/dL (3.4-4.8); Alkaline Phosphatase 61 U/L (40-110); Anion Gap 14 mmol/L (10-20); BUN (Urea Nitrogen) 28 mg/dL (8.4-25.7); Bilirubin, Total 0.8 mg/dL (0.2-1.2); Calc. Creatinine Clearance 16 mL/min (70-130); Calcium 8.6 mg/dL (7.8-10.44); Carbon Dioxide 25 mmol/L (23-31); Chloride 100 mmol/L (98-107); Estimated GFR 11; Globulin 3.5 g/dL (2.4-3.5); Glucose 108 mg/dL (80-115); Potassium 4.4 mmol/L (3.5-5.1); Protein, Total 6.4 g/dL (5.8-8.1); Sodium 135 mmol/L (136-145)
[2022-04-22] MEDS: Nicotine 14 MG PATCH TD SCH (08:08)
[2022-04-22] MEDS: Calcium Carbonate 600 MG + Vit D TAB PO SCH ×2 (08:09→17:26)
[2022-04-22] MEDS: NIFEdipine XL 60 MG TAB PO SCH (08:09)
[2022-04-22] MEDS: Sevelamer Carbonate 800 MG TAB PO SCH ×3 (08:09→17:26)
[2022-04-22] MEDS: Aspirin 81 mg Enteric Coated Tablet PO SCH (08:09)
[2022-04-22] MEDS: Heparin 5,000 UNITS/ML VIAL SC SCH ×3 (08:09→21:22)
[2022-04-22] MEDS ORDERED: Loratadine 10 MG TAB PO SCH (09:00)
[2022-04-22] MEDS: Tamsulosin HCl 0.4 MG CAP PO SCH (21:21)
[2022-04-22] MEDS: Atorvastatin Calcium 40 MG TAB PO SCH (21:22)
[2022-04-22 22:37] VITALS: BP 100/52; TEMP 98.6
== END 2022-04-22 22:10 | DRG 871 ==
LOC: ERS 02:01 → 2NO 03:43 → T4-A 04-21 11:26
PROVIDERS: ADMIT Family Medicine; ATTEND Family Medicine
PROC: 30233N1 Transfusion of Nonautologous Red Blood Cells into Peripheral Vein, Percutaneous Approach (ICD-10-PCS; principal; 2022-04-20)
PROC: 3E03329 Introduction of Other Anti-infective into Peripheral Vein, Percutaneous Approach (ICD-10-PCS; 2022-04-20)
PROC: 5A1D70Z Performance of Urinary Filtration, Intermittent, Less than 6 Hours Per Day (ICD-10-PCS; 2022-04-20)
DX: A41.9 Sepsis, unspecified organism (principal); G93.41 Metabolic encephalopathy; N18.6 End stage renal disease; I12.0 Hypertensive chronic kidney disease with stage 5 chronic kidney disease or end stage renal disease; N25.81 Secondary hyperparathyroidism of renal origin; J95.851 Ventilator associated pneumonia; Z20.822 Contact with and (suspected) exposure to COVID-19; E11.22 Type 2 diabetes mellitus with diabetic chronic kidney disease; I25.10 Atherosclerotic heart disease of native coronary artery without angina pectoris; D63.1 Anemia in chronic kidney disease; F17.210 Nicotine dependence, cigarettes, uncomplicated; E11.621 Type 2 diabetes mellitus with foot ulcer; L97.529 Non-pressure chronic ulcer of other part of left foot with unspecified severity; F11.10 Opioid abuse, uncomplicated; F15.10 Other stimulant abuse, uncomplicated; N40.1 Benign prostatic hyperplasia with lower urinary tract symptoms; R33.8 Other retention of urine; Z98.890 Other specified postprocedural states; Z79.82 Long term (current) use of aspirin; Z79.899 Other long term (current) drug therapy; Z59.00 Homelessness unspecified; Z99.2 Dependence on renal dialysis; Y95 Nosocomial condition
CPT/HCPCS: 36415; 36416; 36430; 51701; 70450; 71045; 80048; 80053; 80202; 80306; 80307; 81003; 82805; 83605; 83690; 84145; 84484; 85025; 86850; 86900; 86901; 87040; 87081; 87086; 93005; 96365; 96367; 97139; J0692; J1644; J3370-JW; J3490; J7120; P9016

== ENCOUNTER 2022-06-12 08:33 | Inpatient (IN) | payer MEDICARE, MEDICAID ==
[2022-06-12] MEDS ORDERED: Heparin 10,000 UNITS/ 10 ML VIAL ONE (08:48)
[2022-06-12 09:35] LABS: #Eosinphils 0.6 thou/uL (0.0-0.7); #Monocytes 0.4 thou/uL (0.11-0.59); %Basophils 0.5 % (0.0-1.0); %Lymphocytes 25.3 % (21.0-51.0); %Monocytes 5.3 % (0.0-10.0); Hemoglobin 13.1 g/dL (14.0-18.0); Mean Corpuscular HGB CONC 32.3 g/dL (32.0-36.0); Mean Corpuscular Volume 95.8 fl (78.0-98.0); Mean Platelet Volume 8.7 fL (7.4-10.4); Platelet Count 182 10x3/uL (130-400); RBC Distribution Width 14.7 % (11.5-14.5); Red Blood Cell (RBC) Count 4.23 mill/uL (4.70-6.10)
[2022-06-12 09:54] LABS: CK (CPK) 29 U/L (30-200); Lipase 36 U/L (8-78); Magnesium 2.5 mg/dL (1.6-2.6)
[2022-06-12 11:20] LABS: ALT (SGPT) 25 U/L (8-55); AST (SGOT) 18 U/L (5-34); Albumin 3.9 g/dL (3.4-4.8); Alkaline Phosphatase 72 U/L (40-110); Anion Gap 19 mmol/L (10-20); BUN (Urea Nitrogen) 58 mg/dL (8.4-25.7); Bilirubin, Total 0.7 mg/dL (0.2-1.2); Calc. Creatinine Clearance 0 mL/min (70-130); Calcium 10.2 mg/dL (7.8-10.44); Carbon Dioxide 22 mmol/L (23-31); Chloride 100 mmol/L (98-107); Estimated GFR 7; Globulin 3.6 g/dL (2.4-3.5); Glucose 79 mg/dL (80-115); Potassium 5.4 mmol/L (3.5-5.1); Protein, Total 7.5 g/dL (5.8-8.1); Sodium 136 mmol/L (136-145)
[2022-06-12] MEDS ORDERED: Insulin Regular 300 UNITS/3 ML VIAL ONE (12:10)
[2022-06-12] MEDS ORDERED: CALCIUM GLUC 1 GM/NS 50 ML BAG ONE (12:10)
[2022-06-12] MEDS ORDERED: Dextrose 50% Abboject 50 ML SYRINGE ONE (12:10)
[2022-06-12] MEDS ORDERED: Ondansetron PF 4 MG/2 ML Vial IVP PRN (14:00)
[2022-06-12] MEDS ORDERED: Ondansetron ODT 4 MG TAB PO PRN (14:00)
[2022-06-12] MEDS ORDERED: hydrALAZINE 20 MG/ML VIAL SLOW IVP PRN (14:00)
[2022-06-12] MEDS ORDERED: Acetaminophen 500 MG TAB PO PRN (14:00)
[2022-06-12] MEDS: Sevelamer Carbonate 800 MG TAB PO SCH (19:14)
[2022-06-12] MEDS: Atorvastatin Calcium 40 MG TAB PO SCH (20:09)
[2022-06-12] MEDS: Tamsulosin HCl 0.4 MG CAP PO SCH (20:09)
[2022-06-12] MEDS ORDERED: Famotidine/PF 20 mg/2ml Vial ONE (21:19)
[2022-06-12] MEDS: Famotidine/PF 20 mg/2ml Vial SLOW IVP SCH (21:24)
[2022-06-13 03:35] VITALS: BMI 21.8
[2022-06-13 04:55] LABS: #Basophils 0.1 thou/uL (0.0-0.2); #Eosinphils 0.3 thou/uL (0.0-0.7); #Lymphocytes 1.5 thou/uL (1.20-3.40); #Monocytes 0.4 thou/uL (0.11-0.59); #Neutrophils 5.6 thou/uL (1.40-6.50); %Basophils 0.7 % (0.0-1.0); %Eosinophils 3.4 % (0.0-10.0); %Lymphocytes 18.7 % (21.0-51.0); %Monocytes 5.4 % (0.0-10.0); %Neutrophils 71.9 % (42.0-75.0); Hemoglobin 13.8 g/dL (14.0-18.0); Mean Corpuscular HGB CONC 31.7 g/dL (32.0-36.0); Mean Corpuscular Hemoglobin 30.6 pg (27.0-31.0); Mean Corpuscular Volume 96.3 fl (78.0-98.0); Mean Platelet Volume 8.3 fL (7.4-10.4); Platelet Count 195 10x3/uL (130-400); RBC Distribution Width 14.8 % (11.5-14.5); Red Blood Cell (RBC) Count 4.51 mill/uL (4.70-6.10); White Blood Cell (WBC) Count 7.8 10x3/uL (4.8-10.8)
[2022-06-13 05:15] LABS: ALT (SGPT) 20 U/L (8-55); AST (SGOT) 16 U/L (5-34); Albumin 3.9 g/dL (3.4-4.8); Alkaline Phosphatase 76 U/L (40-110); Anion Gap 14 mmol/L (10-20); BUN (Urea Nitrogen) 30 mg/dL (8.4-25.7); Bilirubin, Total 0.7 mg/dL (0.2-1.2); Calc. Creatinine Clearance 14 mL/min (70-130); Calcium 9.4 mg/dL (7.8-10.44); Carbon Dioxide 26 mmol/L (23-31); Cardiac Risk 5.8 (Less than 4.5); Chloride 100 mmol/L (98-107); Cholesterol 197 mg/dl (< 200 Desired); Estimated GFR 10; Globulin 3.8 g/dL (2.4-3.5); Glucose 84 mg/dL (80-115); HDL Cholesterol 34 mg/dL (>60 Neg Risk); LDL Cholesterol, Calculated 139 mg/dL; Potassium 5.5 mmol/L (3.5-5.1); Protein, Total 7.7 g/dL (5.8-8.1); Sodium 134 mmol/L (136-145); Triglycerides 120 mg/dL (Less than 150)
[2022-06-13] MEDS: Aspirin 81 mg Enteric Coated Tablet PO SCH (08:22)
[2022-06-13] MEDS: Sevelamer Carbonate 800 MG TAB PO SCH ×3 (08:22→16:08)
[2022-06-13] MEDS: NIFEdipine XL 60 MG TAB PO SCH (08:23)
[2022-06-13 12:50] LABS: Potassium 5.7 mmol/L (3.5-5.1)
[2022-06-13] MEDS ORDERED: LOKELMA 10 GM PACKET PO SCH (17:00)
[2022-06-13 17:30] LABS: Actual Bicarbonate (HCO3a) 29.9 mEq/L (22-28); Base Excess (BEa) 4.6 mEq/L (-2.0 to +3.0); CO2 Tension 46.6 mmHg (35.0-45.0); Calcium, Ionized (arterial) 1.14 mmol/L (1.12-1.30); Carboxyhemoglobin (COHb) 1.3 gm% (0.0-3.0); Hemoglobin (Hb) 14.8 g/dL (14.0-18.0); O2 Tension (PaO2), arterial 80.6 mmHg (> 80.0); pH, Arterial 7.43 (7.35-7.45)
[2022-06-13 17:31] LABS: Potassium - ABG Lab 6.02 mmol/L (3.70-5.30); Puncture Site LRA
[2022-06-13] MEDS: Atorvastatin Calcium 40 MG TAB PO SCH (23:04)
[2022-06-13] MEDS: Tamsulosin HCl 0.4 MG CAP PO SCH (23:04)
[2022-06-13] MEDS: Famotidine/PF 20 mg/2ml Vial SLOW IVP SCH (23:05)
[2022-06-14] MEDS ORDERED: Sterile Water 10 ML VIAL FS PRN (00:45)
[2022-06-14] MEDS ORDERED: OLANZapine 10 MG VIAL IM SCH (00:45)
[2022-06-14] MEDS: LOKELMA 10 GM PACKET PO SCH ×2 (01:46→02:48)
[2022-06-14] MEDS ORDERED: Heparin 10,000 UNITS/ 10 ML VIAL ONE (08:54)
[2022-06-14] MEDS: Aspirin 81 mg Enteric Coated Tablet PO SCH (09:22)
[2022-06-14] MEDS: Sevelamer Carbonate 800 MG TAB PO SCH ×4 (09:22→18:52)
[2022-06-14] MEDS: hydrALAZINE 25 MG TAB PO SCH ×3 (09:22→21:49)
[2022-06-14] MEDS: NIFEdipine XL 60 MG TAB PO SCH (09:22)
[2022-06-14 10:06] LABS: Anion Gap 17 mmol/L (10-20); BUN (Urea Nitrogen) 45 mg/dL (8.4-25.7); Calc. Creatinine Clearance 10 mL/min (70-130); Calcium 9.3 mg/dL (7.8-10.44); Carbon Dioxide 23 mmol/L (23-31); Chloride 101 mmol/L (98-107); Estimated GFR 7; Glucose 126 mg/dL (80-115); Sodium 136 mmol/L (136-145)
[2022-06-14] MEDS ORDERED: LOKELMA 10 GM PACKET PO SCH (14:30)
[2022-06-14] MEDS ORDERED: Lorazepam 2 MG/ML VIAL SLOW IVP SCH (16:45)
[2022-06-14] MEDS ORDERED: Ziprasidone 20 MG CAP PO SCH (17:00)
[2022-06-14] MEDS ORDERED: Furosemide 100 MG/10 ML VIAL SLOW IVP SCH (17:42)
[2022-06-14] MEDS ORDERED: Sodium Bicarbonate 150 MEQ in Dextrose 5% in Water 1,000 ML IV SCH (17:45)
[2022-06-14] MEDS: Tamsulosin HCl 0.4 MG CAP PO SCH (21:49)
[2022-06-14] MEDS: QUEtiapine 25 MG TAB PO SCH (21:49)
[2022-06-14] MEDS: Atorvastatin Calcium 40 MG TAB PO SCH (21:49)
[2022-06-14] MEDS: Famotidine/PF 20 mg/2ml Vial SLOW IVP SCH (21:50)
[2022-06-14] MEDS: RisperDAL M 1 MG TAB SL SCH (21:50)
[2022-06-15] MEDS: Furosemide 100 MG/10 ML VIAL SLOW IVP SCH ×2 (05:25→14:31)
[2022-06-15 07:04] LABS: ALT (SGPT) 13 U/L (8-55); AST (SGOT) 12 U/L (5-34); Albumin 3.9 g/dL (3.4-4.8); Alkaline Phosphatase 72 U/L (40-110); Anion Gap 16 mmol/L (10-20); BUN (Urea Nitrogen) 26 mg/dL (8.4-25.7); Bilirubin, Total 0.8 mg/dL (0.2-1.2); Calc. Creatinine Clearance 14 mL/min (70-130); Calcium 9.3 mg/dL (7.8-10.44); Carbon Dioxide 28 mmol/L (23-31); Chloride 98 mmol/L (98-107); Estimated GFR 10; Globulin 3.6 g/dL (2.4-3.5); Glucose 99 mg/dL (80-115); Potassium 4.3 mmol/L (3.5-5.1); Protein, Total 7.5 g/dL (5.8-8.1); Sodium 138 mmol/L (136-145)
[2022-06-15] MEDS ORDERED: QUEtiapine 25 MG TAB PO SCH (09:00)
[2022-06-15] MEDS: QUEtiapine 25 MG TAB PO SCH (09:08)
[2022-06-15] MEDS: NIFEdipine XL 60 MG TAB PO SCH (09:08)
[2022-06-15] MEDS: Aspirin 81 mg Enteric Coated Tablet PO SCH (09:08)
[2022-06-15] MEDS: Sevelamer Carbonate 800 MG TAB PO SCH ×3 (09:08→16:55)
[2022-06-15] MEDS: hydrALAZINE 25 MG TAB PO SCH ×3 (09:08→23:01)
[2022-06-15] MEDS: Atorvastatin Calcium 40 MG TAB PO SCH (23:00)
[2022-06-15] MEDS: Tamsulosin HCl 0.4 MG CAP PO SCH (23:01)
[2022-06-15] MEDS: RisperDAL M 1 MG TAB SL SCH (23:01)
[2022-06-16] MEDS: Furosemide 100 MG/10 ML VIAL SLOW IVP SCH ×2 (06:18→14:39)
[2022-06-16] MEDS: hydrALAZINE 25 MG TAB PO SCH ×3 (09:23→22:13)
[2022-06-16] MEDS: NIFEdipine XL 60 MG TAB PO SCH (09:23)
[2022-06-16] MEDS: QUEtiapine 25 MG TAB PO SCH (09:23)
[2022-06-16] MEDS: Aspirin 81 mg Enteric Coated Tablet PO SCH (09:23)
[2022-06-16] MEDS: Sevelamer Carbonate 800 MG TAB PO SCH ×3 (09:23→16:59)
[2022-06-16] MEDS ORDERED: Heparin 10,000 UNITS/ 10 ML VIAL ONE (11:53)
[2022-06-16 16:15] LABS: ALT (SGPT) 13 U/L (8-55); AST (SGOT) 20 U/L (5-34); Albumin 4.2 g/dL (3.4-4.8); Alkaline Phosphatase 81 U/L (40-110); Anion Gap 17 mmol/L (10-20); BUN (Urea Nitrogen) 18 mg/dL (8.4-25.7); Bilirubin, Total 1.2 mg/dL (0.2-1.2); Calc. Creatinine Clearance 18 mL/min (70-130); Calcium 9.8 mg/dL (7.8-10.44); Carbon Dioxide 27 mmol/L (23-31); Chloride 97 mmol/L (98-107); Estimated GFR 14; Globulin 4.2 g/dL (2.4-3.5); Glucose 93 mg/dL (80-115); Potassium 4.2 mmol/L (3.5-5.1); Protein, Total 8.4 g/dL (5.8-8.1); Sodium 137 mmol/L (136-145)
[2022-06-16] MEDS: Tamsulosin HCl 0.4 MG CAP PO SCH (22:12)
[2022-06-16] MEDS: RisperDAL M 1 MG TAB SL SCH (22:12)
[2022-06-16] MEDS: Atorvastatin Calcium 40 MG TAB PO SCH (22:13)
[2022-06-17] MEDS: Furosemide 100 MG/10 ML VIAL SLOW IVP SCH ×2 (05:21→14:41)
[2022-06-17] MEDS: QUEtiapine 25 MG TAB PO SCH (08:05)
[2022-06-17] MEDS: Aspirin 81 mg Enteric Coated Tablet PO SCH (08:05)
[2022-06-17] MEDS: hydrALAZINE 25 MG TAB PO SCH ×3 (08:05→20:33)
[2022-06-17] MEDS: NIFEdipine XL 60 MG TAB PO SCH (08:05)
[2022-06-17] MEDS: Sevelamer Carbonate 800 MG TAB PO SCH ×3 (08:05→17:00)
[2022-06-17 17:05] LABS: ALT (SGPT) 12 U/L (8-55); AST (SGOT) 18 U/L (5-34); Albumin 4.2 g/dL (3.4-4.8); Alkaline Phosphatase 77 U/L (40-110); Anion Gap 21 mmol/L (10-20); BUN (Urea Nitrogen) 40 mg/dL (8.4-25.7); Bilirubin, Total 1.3 mg/dL (0.2-1.2); Calc. Creatinine Clearance 11 mL/min (70-130); Calcium 9.9 mg/dL (7.8-10.44); Carbon Dioxide 24 mmol/L (23-31); Chloride 95 mmol/L (98-107); Estimated GFR 7; Globulin 3.8 g/dL (2.4-3.5); Glucose 113 mg/dL (80-115); Potassium 4.8 mmol/L (3.5-5.1); Sodium 135 mmol/L (136-145)
[2022-06-17] MEDS: Atorvastatin Calcium 40 MG TAB PO SCH (20:32)
[2022-06-17] MEDS: Tamsulosin HCl 0.4 MG CAP PO SCH (20:32)
[2022-06-17] MEDS: RisperDAL M 1 MG TAB SL SCH (20:33)
[2022-06-18] MEDS: Aspirin 81 mg Enteric Coated Tablet PO SCH (07:48)
[2022-06-18] MEDS: hydrALAZINE 25 MG TAB PO SCH ×3 (07:48→21:21)
[2022-06-18] MEDS: QUEtiapine 25 MG TAB PO SCH (07:48)
[2022-06-18] MEDS: Sevelamer Carbonate 800 MG TAB PO SCH ×3 (07:48→16:50)
[2022-06-18] MEDS: NIFEdipine XL 60 MG TAB PO SCH (07:48)
[2022-06-18] MEDS: Atorvastatin Calcium 40 MG TAB PO SCH (21:22)
[2022-06-18] MEDS: Tamsulosin HCl 0.4 MG CAP PO SCH (21:22)
[2022-06-18] MEDS: RisperDAL M 1 MG TAB SL SCH (21:22)
[2022-06-19] MEDS: Sevelamer Carbonate 800 MG TAB PO SCH (07:57)
[2022-06-19 08:34] VITALS: TEMP 97.7
[2022-06-19] MEDS: NIFEdipine XL 60 MG TAB PO SCH (09:00)
[2022-06-19] MEDS: hydrALAZINE 25 MG TAB PO SCH (09:06)
[2022-06-19] MEDS ORDERED: Famotidine 20 MG TAB PO SCH (09:30)
[2022-06-19] MEDS ORDERED: Heparin 10,000 UNITS/ 10 ML VIAL ONE (11:53)
[2022-06-19] MEDS ORDERED: Sevelamer 2.4 GM PACKET PER TUBE SCH (12:00)
[2022-06-19] MEDS ORDERED: Sevelamer 2.4 GM PACKET FS SCH (12:00)
[2022-06-19] MEDS: Aspirin 81 mg Enteric Coated Tablet PO SCH (13:03)
[2022-06-19] MEDS: QUEtiapine 25 MG TAB PO SCH (13:03)
[2022-06-19 13:16] VITALS: BP 143/66
[2022-06-20] MEDS ORDERED: Famotidine 20 MG TAB PO SCH (09:00)
== END 2022-06-19 15:11 | DRG 304 ==
LOC: ERS 08:33 → ERHOLD 12:58 → OBSVTOIN 14:00 → 2NO 06-13 01:44 → T4-A 06-15 00:43
PROVIDERS: ADMIT Internal Medicine; ATTEND Internal Medicine
PROC: 5A1D70Z Performance of Urinary Filtration, Intermittent, Less than 6 Hours Per Day (ICD-10-PCS; principal; 2022-06-12)
DX: I16.0 Hypertensive urgency (principal); G93.41 Metabolic encephalopathy; N18.6 End stage renal disease; F05 Delirium due to known physiological condition; I12.0 Hypertensive chronic kidney disease with stage 5 chronic kidney disease or end stage renal disease; E87.5 Hyperkalemia; N40.0 Benign prostatic hyperplasia without lower urinary tract symptoms; I25.10 Atherosclerotic heart disease of native coronary artery without angina pectoris; F17.210 Nicotine dependence, cigarettes, uncomplicated; D63.1 Anemia in chronic kidney disease; E78.5 Hyperlipidemia, unspecified; N40.1 Benign prostatic hyperplasia with lower urinary tract symptoms; R33.8 Other retention of urine; Z99.2 Dependence on renal dialysis; Z59.00 Homelessness unspecified; Z86.16 Personal history of COVID-19; Z87.01 Personal history of pneumonia (recurrent); Z79.899 Other long term (current) drug therapy; Z79.82 Long term (current) use of aspirin
CPT/HCPCS: 36415; 36416; 36600; 70450; 71045; 80048; 80053; 80061; 82550; 82805; 83690; 83735; 83880; 84484; 85025; 90935; 93005; 93306; 95712; 95819; 95957; 96365; 96375; G0257; J0613; J1644; J1815; J1940; J2060; J7070; J7999; S0028